=== PATIENT | male | born 1985 | race Caucasian/White ===

== ENCOUNTER 2017-08-22 08:08 | Emergency (ER) | payer BC, OTHER ==
[~2017-08-22] VITALS: Ht 182.9 cm; Wt 125.0 kg
[2017-08-22 08:09] VITALS: BP 167/80; PULSE 119; RESP 18; TEMP 98.5; O2SAT 96
--- NOTE | 2017-08-22 08:46 | PD ---
HPI Chief Complaint: ENT Complaint Time Seen by Provider: 08:38 Travel History International Travel<30 days: No Contact w/Intl Traveler<30days: No Traveled to known affect area: No History of Present Illness HPI 31-year-old male presents to the emergency Department with complaint of sore throat 4 days. MAXIMUM TEMPERATURE of 99.9 at home. Denies lump in throat, difficulty swallowing, unusual drooling. Reports painful swallowing. Denies cough, congestion. Reports left ear pain. Reports headache; denies at this time. Denies nausea, vomiting, abdominal pain. Has been taking over-the- counter lozenges and Advil for symptom management. Symptoms are mild in severity. Reports it as a burning sensation. Aggravated with swallowing. His kids were sick with similar symptoms a week ago. No known allergies. Has no other medical complaints. No other modifying factors or associated signs and symptoms. PFSH Past Medical History Medical History: Denies Significant Hx Past Surgical History Surgical History: No Previous Surgery Social History Alcohol Use: Yes (OCC) Tobacco Use: No Substance Use: No Allergies-Medications (Allergen,Severity, Reaction): Coded Allergies: No Known Allergies (Unverified , 08/22/17) Reported Meds & Prescriptions Reported Meds & Active Scripts Active Magic Mouthwash Pediatric/Adult Liq (Lidocaine/Diphenhydr/Alum/Mg/Simeth) 60 Ml Susp 5 Ml SWISH-SWAL Q3HR PRN Each 5mL contains: Diphenydramine 4.5mg, Viscous Lidocaine 2% 10mg, Maalox Advanced Regular Strength 2.7ml Amoxicillin 500 Mg Cap 500 Mg PO BID 10 Days Review of Systems Except as stated in HPI: all other systems reviewed are Neg Physical Exam Narrative GENERAL: Well-nourished, well-developed male patient, in no acute distress SKIN: Warm and dry. No rash. HEAD: Atraumatic. Normocephalic. EYES: Pupils equal and round. No scleral icterus. No injection or drainage. PERRLA. ENT: Mucosa pink and dry. Pharynx with 2+ tonsils; with erythema without exudate. No Uvular edema. No uvular, palatal, or tonsillar deviation. Airway patent. Voice is hoarse. EARS: Bilateral pinnae and external canals appear within normal limits. Bilateral tympanic membranes without erythema, dullness or perforation.. NECK: Trachea midline. Anterior cervical lymphadenopathy and tenderness. CARDIOVASCULAR: Regular rate. RESPIRATORY: No accessory muscle use. GASTROINTESTINAL: Rounded. MUSCULOSKELETAL: No obvious deformities. No clubbing. No cyanosis. No edema. NEUROLOGICAL: Awake and alert. Oriented 3. No obvious cranial nerve deficits. Motor grossly within normal limits. Normal speech. Moves all extremities. PSYCHIATRIC: Appropriate mood and affect; insight and judgment normal. Data Data Last Documented VS Vital Signs Date Time Temp Pulse Resp B/P (MAP) Pulse Ox O2 Delivery O2 Flow Rate FiO2 08/22/17 08:09 98.5 119 18 167/80 (109) 96 Orders Orders Group A Rapid Strep Screen (08/22/17 08:31) Ed Discharge Order (08/22/17 09:36) MDM Medical Decision Making Medical Screen Exam Complete: Yes Emergency Medical Condition: Yes Medical Record Reviewed: Yes Differential Diagnosis Strep pharyngitis, tonsillitis, viral pharyngitis, less likely peritonsillar abscess Narrative Course 31-year-old male with sore throat. Patient took Advil prior to arrival. Rapid strep ordered. 929: Rapid strep positive. Amoxicillin and Magic mouthwash prescribed for home. Instructed patient to follow up with primary care provider. Patient verbalizes understanding and agreement with treatment plan. Patient is medically cleared and stable for discharge. Discussed reasons to return to the emergency department. Patient agrees with treatment plan. The patients vital signs are stable and the patient is stable for outpatient follow-up and treatment. Patient discharged home, stable and in no acute distress. Diagnosis Primary Impression: Strep throat Referrals: [facility] Primary Care Physician Patient Instructions: General Instructions, Strep Throat (ED) Departure Forms: Tests/Procedures, Work Release Enter return to work date: Aug 24, 2017 Additional Instructions: Take Antibiotics as prescribed and complete full course of antibiotics Throw away and change your toothbrush 24 hours after starting antibiotics Get plenty of sleep/rest Rest your voice Drink plenty of fluids to prevent dehydration Use warm saltwater gargles to soothe throat pain Use an air humidifier/turn off ceiling fans Use throat lozenges as needed for sore throat Use ibuprofen or acetaminophen as needed to relieve pain and fever Follow-up with your primary care provider within 2-4 days Return immediately to the emergency department with worsening of symptoms Med/Other Pt SpecificInfo: Prescription(s) given Scripts Fgyawhryipkrelk-Ghfozbmvw-Qza-Alum-Simeth Liq (Magic Mouthwash Pediatric/Adult Liq) 60 Ml Susp 5 ML SWISH-SWAL Q3HR Y for PAIN SCALE 1 TO 10, #60 ML 0 Refills Each 5mL contains: Diphenydramine 4.5mg, Viscous Lidocaine 2% 10mg, Maalox Advanced Regular Strength 2.7ml Prov: Barbi Reyna 08/22/17 Amoxicillin (Amoxicillin) 500 Mg Cap 500 MG PO BID for Infection for 10 Days, #20 CAP 0 Refills Prov: Barbi Reyna 08/22/17 Disposition: 01 DISCHARGE HOME Condition: Stable Barbi Reyna Aug 22, 2017 08:46
[2017-08-22] MEDS ORDERED: MAGICPED SWISH-SWAL (09:34)
[2017-08-22] MEDS ORDERED: AMOX500C PO (09:34)
== END 2017-08-22 10:06 | disposition home or self-care (01) ==
LOC: NEPD 08:08
DX: J02.0 Streptococcal pharyngitis (principal); H92.02 Otalgia, left ear; R51 Headache
CPT/HCPCS: 87880; 99284